=== PATIENT | male | born 1960 | race African-American/Black ===

== ENCOUNTER → 2021-07-23 | Outpatient (CLI) | payer OTHER ==
[~2021-07-23] MED LIST: ALLEGRA 180MG180 MG PO; APRESOLINE50 MG PO; ASPIRIN 81M81 MG/TA2 PO; B-121000 MCG PO; CATAPRES 0.1MG0.1 MG PO; DULCOLAX STOOL100 MG PO; FLEXERIL 1010 MG/TAB PO; HYGROTON 2525 MG/TAB PO; LIPITOR 80MG80 MG PO; MOBIC15 MG PO; NEURONTIN300 MG/CAP PO; NORCO 325 MG-101 TAB PO; PLAVIX 75MG TAB75 MG PO; PRINIVIL10 MG; PRINIVIL40 MG PO; VERELAN120 MG; VERELAN180 MG PO; VITAMIN D31000 IU PO; ZOCOR 20MG20 MG PO
== END ==
LOC: COL.LAB 09:36 → COL.RAD 09:51 → COL.LAB 09:51
DX: Z02.71 Encounter for disability determination (principal); M51.36 Other intervertebral disc degeneration, lumbar region; M47.816 Spondylosis without myelopathy or radiculopathy, lumbar region; M43.07 Spondylolysis, lumbosacral region

== ENCOUNTER 2021-09-06 12:09 | Inpatient (IN) | payer OTHER ==
[~2021-09-06] VITALS: Ht 182.9 cm; Wt 84.5 kg
[2021-09-06 12:45] LABS: BASO % 0.6 % (0.0-2.0); EOS # 0.1 K/mm3 (0.0-0.7); EOS % 1.7 % (0-4.0); GRAN # 2.3 K/mm3 (1.4-6.5); GRAN % 43.7 % (42.2-75.2); HEMATOCRIT 43.3 % (42.0-52.0); HEMOGLOBIN 15.4 g/dl (13.5-18.0); LYMPH # 2.3 K/mm3 (1.2-3.4); LYMPH % 43.7 % (20.0-51.0); MEAN CELL VOLUME 73 fl (80.0-100.0); MEAN CORPUSCULAR HEMOGLOBIN 26 pg (27.0-31.0); MEAN CORPUSCULAR HGB CONC 36 g/dl (33.0-37.0); MEAN PLATELET VOLUME 9.5 fl (7.4-10.4); MONO # 0.5 K/mm3 (0.1-0.6); MONO % 10.1 % (1.7-9.3); PLATELET COUNT 262 K/mm3 (130-400); RED BLOOD COUNT 5.92 M/mm3 (4.20-5.60); REDCELL DISTRIBUTION WIDTH-CV 13.6 % (11.5-14.5)
[2021-09-06 12:53] LABS: ALANINE AMINOTRANSFERASE 16 U/L (0-55); ALBUMIN 4.4 gm/dL (3.4-4.8); ALKALINE PHOSPHATASE 57 U/L (40-150); ANION GAP 10 mmol/L (7-16); AST,SGOT 19 U/L (5-34); BILIRUBIN,TOTAL 1.6 mg/dL (0.2-1.2); BLOOD UREA NITROGEN 13 mg/dL (8-26); CALCIUM 9.8 mg/dL (8.4-10.2); CARBON DIOXIDE 26 mmol/L (23-31); CHLORIDE 106 mmol/L (98-107); CREATININE, serum 0.97 mg/dL (0.72-1.25); GLUCOSE 90 mg/dL (70-99); POTASSIUM 3.9 mmol/L (3.5-4.5); SODIUM 142 mmol/L (136-145); TOTAL PROTEIN 8.2 gm/dL (6.2-8.1)
[2021-09-06 12:54] LABS: PROTHROMBIN TIME 11.6 SECONDS (9.7-12.8)
[2021-09-06 13:00] LABS: TROPONIN-I < 0.010 ng/mL (0.00-0.033)
[2021-09-06] MEDS ORDERED: PRINIVIL10 MG (13:41)
[2021-09-06] MEDS ORDERED: VERELAN120 MG (13:42)
[2021-09-06] MEDS ORDERED: CATAPRES 0.1MG0.1 MG PO (13:42)
[2021-09-06] MEDS ORDERED: ALLEGRA 180MG180 MG PO (15:19)
[2021-09-06] MEDS ORDERED: NEURONTIN300 MG/CAP PO (15:19)
[2021-09-06] MEDS ORDERED: NORCO 325 MG-101 TAB PO (15:21)
[2021-09-06] MEDS ORDERED: ZOCOR 20MG20 MG PO (15:22)
[2021-09-06] MEDS ORDERED: DULCOLAX STOOL100 MG PO (15:23)
[2021-09-06] MEDS ORDERED: MOBIC15 MG PO (15:24)
[2021-09-06] MEDS ORDERED: FLEXERIL 1010 MG/TAB PO (15:24)
[2021-09-06] MEDS ORDERED: VITAMIN D31000 IU PO (15:25)
[2021-09-06 15:53] LABS: COLLECTION METHOD CLEAN CATCH
[2021-09-06 16:01] LABS: MUCOUS Present /lpf; PH 5 (5-8); SQUAMOUS EPITHELIAL None Seen /hpf; URINE APPEARANCE Clear; URINE BACTERIA None Seen /hpf; URINE BILIRUBIN Negative (NEGATIVE); URINE BLOOD Negative (NEGATIVE); URINE COLOR Yellow; URINE GLUCOSE Negative (NEGATIVE); URINE KETONE Negative (NEGATIVE); URINE LEUKOCYTE ESTERASE Negative (NEGATIVE); URINE NITRATE Negative (NEGATIVE); URINE PROTEIN(semi-quant) Negative (NEGATIVE); URINE RBC 0-2 /hpf
[2021-09-06] MEDS ORDERED: VERELAN180 MG PO (16:56)
[2021-09-06] MEDS ORDERED: PRINIVIL40 MG PO (16:57)
[2021-09-06 17:15] VITALS: BP 150/101; PULSE 65; TEMP 98.1
--- NOTE | 2021-09-06 18:10 | NUR ---
PT ARRIVES TO ROOM @ 1700. PT IS ALERT. ANSWERS ORINETATION ANSWERS CORRECTLY BUT IS SLOW TO ANSWER THE DATE. PT IS CLOUDED, CANNOT REMEMBER WHEN HIS LAST BM WAS. DENIES HEADACHE OR ANY PAIN @ THIS TIME. PT IS FRUSTRATED THAT HE CANNOT EAT OR DRINK. THIS NURSE EXPLAINED TO PT WHY HE SHOULD REMAIN NPO @ THIS TIME. ORAL SWAB PROVIDED FOR DRYNESS. SPOUSE IS @ BEDSIDE. PT ET SPOUSE ORINETED TO CALL LIGHT, FALL PRECAUTIONS ET VISITING HOURS. RESPIRATIONS ARE UNLABORED. DENIES OTHER NEEDS.
--- NOTE | 2021-09-06 19:00 | NUR ---
CHANGE OF SHIFT REPORT RECEIVED FROM DAY SHIFT NURSE.
[2021-09-06 19:20] VITALS: BP 147/91; PULSE 63; TEMP 97.7
[2021-09-07] VITALS (8 sets, daily range): BP systolic 139–179; BP diastolic 87–101; PULSE 58–79; TEMP 97.5–98.5
--- NOTE | 2021-09-07 06:45 | NUR ---
Report received from EMMANUEL Salas. Patient is resting in bed and denies pain at this time. Call light and bedside table are within reach. Will continue to monitor patient throughout shift.
[2021-09-07 07:15] LABS: BASO % 0.9 % (0.0-2.0); EOS # 0.1 K/mm3 (0.0-0.7); EOS % 2.5 % (0-4.0); HEMATOCRIT 39.3 % (42.0-52.0); HEMOGLOBIN 14.1 g/dl (13.5-18.0); LYMPH # 1.7 K/mm3 (1.2-3.4); LYMPH % 39.7 % (20.0-51.0); MEAN CELL VOLUME 72 fl (80.0-100.0); MEAN CORPUSCULAR HEMOGLOBIN 26 pg (27.0-31.0); MEAN CORPUSCULAR HGB CONC 36 g/dl (33.0-37.0); MEAN PLATELET VOLUME 9.7 fl (7.4-10.4); MONO # 0.4 K/mm3 (0.1-0.6); MONO % 9.7 % (1.7-9.3); PLATELET COUNT 229 K/mm3 (130-400); RED BLOOD COUNT 5.45 M/mm3 (4.20-5.60); REDCELL DISTRIBUTION WIDTH-CV 13.5 % (11.5-14.5)
[2021-09-07 07:28] LABS: ALBUMIN 3.6 gm/dL (3.4-4.8); BILIRUBIN,TOTAL 2.3 mg/dL (0.2-1.2); CALCIUM 8.9 mg/dL (8.4-10.2); CHOLESTEROL RISK RATIO 2.7; CREATININE, serum 0.78 mg/dL (0.72-1.25); POTASSIUM 3.6 mmol/L (3.5-4.5); TOTAL PROTEIN 6.9 gm/dL (6.2-8.1)
--- NOTE | 2021-09-07 07:32 | NUR ---
CHANGE OF SHIFT REPORT GIVEN TO DAY SHIFT NURSE, WU BENITEZ. PATIENT UP IN ROOM WITH NO PROBLEMS INDEPENDENTLY. DENIED COMPLAINT OF HEADACHE THROUGHOUT SHIFT. OBSERVED NO PROBLEMS WITH SWALLOWING PILLS WITH SIPS OF WATER. DENIES CHEST PAIN/SOA/NAUSEA THROUGHOUT SHIFT.
[2021-09-07 07:48] LABS: TSH w REFLEX 0.454 uIU/mL (0.350-4.940)
--- NOTE | 2021-09-07 09:30 | NUR ---
Patient's is at bedside.
--- NOTE | 2021-09-07 09:42 | NUR ---
Patient has some generalized left side weakness. Patient is able to lift arms and legs and hold them up with ease. Patient is A & O x 3 with no noticeable confusion. Patient's BP was 179/101 so this nurse contacted Dr. Philip who informed her to give it some time to come down considering he took his medications at 0830. Call light and bedside table are within reach. Will continue to monitor patient throughout shift.
--- NOTE | 2021-09-07 10:46 | NUR ---
First visit from the gaming investigator. No needs right now.
--- NOTE | 2021-09-07 10:55 | NUR ---
Patient c/o pain in the area where he has a hernia but refused pain medication and also refused to participate in therapy d/t the pain. Patient also refused to do his ADLs and stated all he wanted to do was go back to bed. Call light and bedside table are within reach.
--- NOTE | 2021-09-07 11:44 | NUR ---
Plan is to go home with Magalis . DTR Margarita is alternate. PCP is Dr. Moise Myers with [facility]. Patient reports that he is having difficulty getting his words out and mobility. Patient is interested in using a cane. Patient is agreeable to work with both physcial therapy and speech therapy. Educated and patient on supports. Patient reports that they are still trying to find out what is going on with him. Will continue to work with client on care supports. Patient denies having any concersn with needing home health. RX obtained at [facility]. Will follow.
--- NOTE | 2021-09-07 14:54 | NUR ---
Patient is using more words to express ideas and thoughts. Patient stated he has noted an improvement when it comes to speaking because he is taking his time to think about what he wants to say. Speech is delayed but has improved. Patient has drank and eaten and noted issues with swallowing. Call light and bedside table are within reach. Will continue to monitor patient throughout shift.
--- NOTE | 2021-09-08 01:13 | NUR ---
PT SLEEPING IN BED @ THIS TIME. RESPIRATIONS UNLABORED. PT HAS DENIED ANY PAIN WHEN ASKED. PT ANSWERS QUESTIONS CORRECTLY BUT HAS A DELAY IN ANSWERING THEM. MOVEMENT ET STRENGTH IN ALL EXTREMITIES INTACT. CALL LIGHT WITH REACH.
[2021-09-08 03:46] VITALS: BP 157/100; PULSE 65; TEMP 97.7
--- NOTE | 2021-09-08 04:00 | NUR ---
PT AWAKE ET SITTING UP ON SIDE OF BED WITH HIS TABLET. PT STATES THAT HE JUST CAN'T FIGURE OUT WHY HIS BLOOD PRESSURE IS STILL HIGH. PT DENIES ANY PAIN, HEADACHE OR DIZZINESS WHEN STANDING OR AMBULATING. PT HAS INDEPENDENTLY AMBULATED TO SINK TO BRUSH TEETH ET HAS USED BR THIS MORNING WITH NO PROBLEMS. PT DENIES OTHER NEEDS. CALL LIGHT WITHIN REACH.
--- NOTE | 2021-09-08 06:45 | NUR ---
Report received from Amador RN. Patient is awake in bed watching TV and denies pain at this time. Call light and bedside table are within reach. Will continue to monitor patient throughout shift.
[2021-09-08 07:37] LABS: ALBUMIN 3.8 gm/dL (3.4-4.8); CALCIUM 9.2 mg/dL (8.4-10.2); CREATININE, serum 0.97 mg/dL (0.72-1.25); POTASSIUM 3.6 mmol/L (3.5-4.5); TOTAL PROTEIN 7.3 gm/dL (6.2-8.1)
[2021-09-08 07:56] LABS: BILIRUBIN,DIRECT 0.7 mg/dL (0.0-0.5); BILIRUBIN,TOTAL 1.7 mg/dL (0.2-1.2)
[2021-09-08 08:00] VITALS: BP 176/110; PULSE 62; TEMP 98.1
[2021-09-08 12:14] VITALS: BP 154/98; PULSE 80; TEMP 98.9
[2021-09-08 15:30] VITALS: BP 150/93; PULSE 67; TEMP 98.6
[2021-09-08 19:55] VITALS: BP 163/97; PULSE 67; TEMP 98.3
[2021-09-09] VITALS (7 sets, daily range): BP systolic 142–189; BP diastolic 89–108; PULSE 57–84; TEMP 97.9–98.7
--- NOTE | 2021-09-09 04:50 | NUR ---
PT RESTING QUIETLY IN BED. APHASIA HAS IMPROVED FROM ADMISSION. PT ANSWERS QUESTIONS CORRECTLY, SOMETIMES SLOWLY. PT AMBULATES INDEPENDENTLY IN ROOM WITH NO PROBLEMS. BLOOD PRESSURES REMAIN ELEVATED. PT HAS DENIED ANY HEADACHE, PAIN OR DIZZINESS. RESPIRATIONS ARE UNLABORED. CALL LIGHT WITHIN REACH.
[2021-09-09 07:31] LABS: ALBUMIN 3.8 gm/dL (3.4-4.8); BILIRUBIN,TOTAL 1.2 mg/dL (0.2-1.2); CALCIUM 9.3 mg/dL (8.4-10.2); CREATININE, serum 0.94 mg/dL (0.72-1.25); POTASSIUM 3.4 mmol/L (3.5-4.5); TOTAL PROTEIN 6.9 gm/dL (6.2-8.1)
--- NOTE | 2021-09-09 10:00 | NUR ---
Patient alert and oriented, answers questions appropriately. See assessment. Neuro checks and stroke scale in place, scoring negative. Hand punch machine operator equal, gait steady, facial expressions symmetrical, tongue midline. Monitoring blood pressures. No c/o at this time.
[2021-09-09] MEDS ORDERED: PLAVIX 75MG TAB75 MG PO (16:15)
[2021-09-09] MEDS ORDERED: LIPITOR 80MG80 MG PO (16:15)
[2021-09-09] MEDS ORDERED: APRESOLINE50 MG PO (16:16)
[2021-09-09] MEDS ORDERED: ASPIRIN 81M81 MG/TA2 PO (16:16)
[2021-09-09] MEDS ORDERED: B-121000 MCG PO (16:17)
[2021-09-09] MEDS ORDERED: HYGROTON 2525 MG/TAB PO (16:17)
--- NOTE | 2021-09-09 17:25 | NUR ---
Discharge instructions reviewed with patient and spouse, verbalized understanding. Discharged via wheelchair to auto/home with spouse at 1725.
== END 2021-09-09 17:25 | disposition home or self-care (01) | DRG 65 ==
LOC: COL.ER 12:09 → SURG 15:08
PROVIDERS: Emergency Medicine; Physician Assistant; ADMIT Internal Medicine
DX: I63.512 Cerebral infarction due to unspecified occlusion or stenosis of left middle cerebral artery (principal); I16.1 Hypertensive emergency; I10 Essential (primary) hypertension; E78.5 Hyperlipidemia, unspecified; G89.29 Other chronic pain; Z87.891 Personal history of nicotine dependence; R47.02 Dysphasia; I77.819 Aortic ectasia, unspecified site; R47.01 Aphasia; R73.03 Prediabetes; R29.702 NIHSS score 2
CPT/HCPCS: 99223-AI; 99232-AI; 99239; A9585; J0360; J1650; J7030; Q9967